=== PATIENT | male | born 1970 | race African-American/Black ===

== ENCOUNTER → 2017-06-13 | Outpatient (CLI) | payer BC, OTHER | LOC: RAD 08:27 | DX: R05 Cough (principal); R07.9 Chest pain, unspecified ==

== ENCOUNTER 2020-05-29 18:40 | Emergency (ER) | payer OTHER ==
[~2020-05-29] VITALS: Ht 188 cm; Wt 112.5 kg
[2020-05-29 18:41] VITALS: BP 150/88
[2020-05-29] MEDS ORDERED: NAPROSYN500 MG PO (19:59)
== END 2020-05-29 20:40 | disposition home or self-care (01) ==
LOC: ER 18:40
DX: S62.337A Displaced fracture of neck of fifth metacarpal bone, left hand, initial encounter for closed fracture (principal); S60.511A Abrasion of right hand, initial encounter; F98.8 Other specified behavioral and emotional disorders with onset usually occurring in childhood and adolescence; F31.9 Bipolar disorder, unspecified; E78.5 Hyperlipidemia, unspecified; I10 Essential (primary) hypertension; E11.9 Type 2 diabetes mellitus without complications; J45.909 Unspecified asthma, uncomplicated; W22.01XA Walked into wall, initial encounter; Y93.89 Activity, other specified; Y92.89 Other specified places as the place of occurrence of the external cause; Y99.8 Other external cause status

== ENCOUNTER → 2020-05-30 | Outpatient (CLI) | payer OTHER ==
[~2020-05-30] MED LIST: NAPROSYN500 MG PO
== END ==
LOC: CAT 07:53
PROVIDERS: ATTEND Family Medicine
DX: Z13.6 Encounter for screening for cardiovascular disorders (principal); I25.10 Atherosclerotic heart disease of native coronary artery without angina pectoris; E78.00 Pure hypercholesterolemia, unspecified

== ENCOUNTER 2021-07-23 14:03 | Emergency (ER) | payer OTHER ==
[~2021-07-23] VITALS: Ht 188 cm; Wt 117.0 kg
[2021-07-23 14:05] VITALS: BP 132/85
[2021-07-23] MEDS ORDERED: BUSPIRONE HCL15 MG PO (14:10)
[2021-07-23] MEDS ORDERED: CARBAMAZEPINE200 MG PO (14:11)
[2021-07-23] MEDS ORDERED: METFORMIN HCL1000 MG PO (14:11)
[2021-07-23] MEDS ORDERED: TRULICITY3 MG/0.5 M (14:11)
[2021-07-23] MEDS ORDERED: LISINOPRIL-HCT1 EAC1 PO (14:12)
[2021-07-23] MEDS ORDERED: JARDIANCE25 MG PO (14:12)
[2021-07-23] MEDS ORDERED: ESZOPICLONE3 MG PO (14:12)
[2021-07-23] MEDS ORDERED: ATORVASTATIN CA20 MG PO (14:12)
[2021-07-23] MEDS ORDERED: FLUTICASONE PRO16 GM (14:13)
[2021-07-23] MEDS ORDERED: APAP W/CODEINE1 TA2 PO (14:34)
[2021-07-23] MEDS ORDERED: FLEXERIL PO (14:37)
== END 2021-07-23 14:42 | disposition home or self-care (01) ==
LOC: ER 14:03
DX: M79.604 Pain in right leg (principal); I10 Essential (primary) hypertension; J45.909 Unspecified asthma, uncomplicated